=== PATIENT | female | born 1990 | race Hispanic/Latino ===

== ENCOUNTER 2016-09-24 17:08 | Emergency (ER) | payer OTHER ==
[2016-09-24 17:30] VITALS: RESP 16; TEMP 98.9
--- NOTE | 2016-09-24 18:05 | ED PDOC ---
Arrival/HPI - General Chief Complaint: Female Genitourinary Time Seen by Provider: 09/24/16 17:35 Historian: Patient - History of Present Illness Time/Duration: 1 week Symptom Onset: Gradual Symptom Course: Unchanged Severity Level: Mild Activities at Onset: Rest Associated Symptoms (Text): 09/24/16 18:04 Patient complains of approximately a one-week history of a white vaginal discharge. She has discomfort with urination. No abdominal pain nausea vomiting or diarrhea. No vaginal bleeding. She reports one partner. Oral contraceptives as control. Past Medical History - Psychiatric Hx Substance Use: No Family/Social History - Physician Review Nursing Documentation Reviewed: Yes Family/Social History: Unknown Family HX Smoking Status: Never Smoked Hx Alcohol Use: Yes Frequency of alcohol use: Socially Hx Substance Use: No Allergies/Home Meds Allergies/Adverse Reactions: Allergies No Known Allergies Allergy (Verified 09/24/16 17:30) Home Medications: Home Meds Medication Instructions Recorded Confirmed Levonorgestrel-Ethin Estradiol 1 tab PO DAILY 09/24/16 09/24/16 [Aviane 0.02 mg-0.1 mg] Review of Systems - Physician Review All systems were reviewed & negative as marked: Yes - Review of Systems Gastrointestinal: absent: Abdominal Pain, Constipation, Diarrhea, Nausea, Vomiting Genitourinary Female: Dysuria, Vaginal Discharge. absent: Frequency, Hematuria , Vaginal Bleeding Physical Exam Vital Signs Temp Pulse Resp BP Pulse Ox 09/24/16 17:30 98.9 F 80 16 120/77 97 Temperature: Afebrile Blood Pressure: Normal Pulse: Regular Respiratory Rate: Normal Appearance: Positive for: Well-Appearing, Non-Toxic, Comfortable Pain Distress: None Mental Status: Positive for: Alert and Oriented X 3 - Systems Exam Respiratory/Chest: Present: Clear to Auscultation, Good Air Exchange. No: Respiratory Distress, Accessory Muscle Use Cardiovascular: Present: Regular Rate and Rhythm, Normal S1, S2. No: Murmurs Abdomen: Present: Normal Bowel Sounds. 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 No: Vaginal Bleeding, Vaginal Lesions, Adenexal Tenderness, Adenexal Mass, Cervical Motion Tendernes, Odor Skin: Present: Warm, Dry, Normal Color. No: Rashes Medical Decision Making ED Course and Treatment: 09/24/16 18:48 Urinalysis is negative. test is negative. We'll treat for yeast infection. Cultures pending. - Lab Interpretations Lab Results: Lab Results 09/24/16 17:50: Urine Color Yellow, Urine Appearance Clear, Urine pH 7.0, Ur Specific Irwin 1.020, Urine Protein Negative, Urine Glucose (UA) Negative, Urine Ketones Negative, Urine Blood Negative, Urine Nitrate Negative, Urine Bilirubin Negative, Urine Urobilinogen 0.2, Ur Leukocyte Esterase Negative Disposition/Present on Arrival - Present on Arrival Any Indicators Present on Arrival: No History of DVT/PE: No History of Uncontrolled Diabetes: No Urinary Catheter: No History of Decub. Ulcer: No History Surgical Site Infection Following: None - Disposition Have Diagnosis and Disposition been Completed?: Yes Diagnosis: Bela vaginitis Disposition: HOME/ ROUTINE Disposition Time: 18:49 Patient Plan: Discharge Condition: GOOD Discharge Instructions (ExitCare): Vaginitis (ED) Additional Instructions: Encp-zum-neldojh Gyne-Lotrimin. Follow-up with PMD. Follow-up in the ER as needed. Prescriptions: Fluconazole [Diflucan] 150 mg PO ONCE #1 tab Forms: [employer] (Kyrgyz)
[2016-09-24 18:13] LABS: URINE BILIRUBIN NEGATIVE (NEGATIVE); URINE BLOOD NEGATIVE (NEGATIVE); URINE GLUCOSE (UA) NEGATIVE (NEGATIVE); URINE LEUKOCYTE ESTERASE NEGATIVE Leu/uL (NEGATIVE); URINE NITRATE NEGATIVE (NEGATIVE); URINE PROTEIN NEGATIVE mg/dL (<30 mg/dL); URINE UROBILINOGEN 0.2 E.U./dL (<1 E.U./dL)
[2016-09-24 18:14] LABS: URINE APPEARANCE CLEAR (CLEAR); URINE COLOR YELLOW (YELLOW)
[2016-09-24 19:07] VITALS: BP 121/80; PULSE 78; O2SAT 98
== END 2016-09-24 19:19 | disposition home or self-care (01) ==
LOC: ED 17:08
DX: B37.3 Candidiasis of vulva and vagina (principal)